=== PATIENT | male | born 1940 | race African-American/Black ===

== ENCOUNTER → 2017-07-20 | Outpatient (CLI) | payer MEDICARE, OTHER | LOC: CAT 10:24 | DX: I25.10 Atherosclerotic heart disease of native coronary artery without angina pectoris (principal); J92.9 Pleural plaque without asbestos ==

== ENCOUNTER → 2017-07-28 | Outpatient (CLI) | payer MEDICARE, OTHER | LOC: ULTRA 11:10 | DX: E04.1 Nontoxic single thyroid nodule (principal) ==

== ENCOUNTER → 2017-08-19 | Outpatient (CLI) | payer MEDICARE, OTHER ==
--- NOTE | ~2017-08-19 | CNG ---
[facility] [place] [address] CYTO-NONGYN REPORT PROCEDURE Name: PAIGE SAINI Room #: REG [facility] Michael#: [id number] Admission: 08/19/17 Date of : 44 Discharge: Report #: [id number] Path Case #: [id number] CYTOPATHOLOGY REPORT COLLECTION DATE: 08/19/2017 RECEIVED DATE: 08/19/2017 SUBMITTING PHYS: Dr. Anthony Alarcon OTHER PHYS: Dr. Karan Pena CLINICAL HISTORY: Right and Left thyroid nodules. See separate report for the left thyroid nodule [id number]. SPECIMEN(S) RECEIVED: A.US guided Fine needle aspiration, Right thyroid nodule 0.97 x 0.77 x 1.4 cm * * * * * * * * * * * * FINAL DIAGNOSIS: A. Thyroid, Right thyroid nodule 0.97 x 0.77 x 1.4 cm, US guided Fine needle aspiration: [place] CATEGORY I. NONDIAGNOSTIC: ELEMENTS OF PERIPHERAL BLOOD ONLY. No thyroid follicular cells present for cytologic evaluation. PATHOLOGIST: Rubia Spencer M.D. REPORT ELECTRONICALLY SIGNED BY: Rubia Spencer M.D. DATE/TIME: 08/20/2017 10:27 * * * * * * * * * * * * GROSS PATHOLOGY: A. US guided Fine needle aspiration, Right thyroid nodule 0.97 x 0.77 x 1.4 cm: The specimen is labeled "Paige Saini " and consists of two fixed slides, two air dried slides. Thirty mL of clear colorless fluid in fixative from the needle rinse is also submitted and one ThinPrep slide and a alcohol fixed cell block were prepared from this material. Also received is the RNARetain vial which will be held for molecular studies if needed. (clt 08.19.2017) INSTRUCTIONAL ASSISTANT(S): DEEP Carter(ASCP) INITIAL CPT CODE(S): A; 79245, 75380 Professional services performed by [facility] at [facility] [address], [place] [address] Technical services performed by [facility] at [address] [place] [address], [address], [place] [address]. [facility] [address] [place] [address] CYTO-NONGYN REPORT PROCEDURE Name: PAIGE SAINI Room #: REG [facility].#: [id number] Admission: 08/19/17 Date of : 44 Discharge: Report #: [id number] Path Case #: [id number] [facility] [address] [place] [address], [address] [place] [address] PHONE: [phone] DIRECTOR: Johnny Rolle M.D. * * * END OF REPORT * * *
--- NOTE | ~2017-08-19 | S ---
[facility] [place] [address] SURGICAL PATH RPT PROCEDURE Name: CHRISTELLEPAIGE Dennis Room #: REG RAJNI CharitoPeteIvan.#: [id number] Admission: 08/19/17 Date of : 44 Discharge: Report #: [id number] Path Case #: [id number] PATHOLOGY REPORT COLLECTION DATE: 08/19/2017 RECEIVED DATE: 08/19/2017 SUBMITTING PHYS: Dr. Anthony Alarcon OTHER PHYS: Dr. Karan Pena SPECIMEN(S) RECEIVED: A.Lt thyroid core * * * * * * * * * * * * FINAL DIAGNOSIS: Thyroid, left thyroid lobe, needle core biopsy: - MICROFOLLICULAR LESION (PLEASE SEE COMMENT). COMMENT: Examination shows tightly packed microfollicles and focal macrofollicles. Nuclear features of papillary thyroid carcinoma are not identified. The differential diagnosis for this lesion includes a microfolllicular adenoma or a microfollicular adenomatoid nodule. 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 Correlate clinically and follow-up as indicated. Co-review: Dr. Judy Coates (IUV:mgr; 08/20/2017) PATHOLOGIST: Rubia Spencer M.D. REPORT ELECTRONICALLY SIGNED BY: Rubia Spencer M.D. DATE/TIME: 08/20/2017 15:05 * * * * * * * * * * * * GROSS PATHOLOGY: Received in formalin labeled "Paige Saini Sr, left thyroid lobe" and consists of 2 delicate turner tissue cores averaging 0.5 cm in length by less than 0.1 cm in diameter. There is entirely submitted as A1. (JANELLE; 08/19/2017) CLINICAL HISTORY: Nodule INITIAL CPT CODE(S): A; 914[address] [facility] [place] [address] SURGICAL PATH RPT PROCEDURE Name: PAIGE SAINI Room #: REG [facility].#: [id number] Admission: 08/19/17 Date of : 44 Discharge: Report #: [id number] Path Case #: [id number] Professional [facility] [address], [place] [address] Technical services performed by [facility] at [address] [place] [address], [facility] [address] [address]. [facility] [address] [place] [address] PHONE: [phone] DIRECTOR: Johnny Rolle M.D. * * * END OF REPORT * * *
== END | disposition home or self-care (01) ==
LOC: ULTRA 08:27 → EDSTATUS 08:45 → ULTRA 09:41
DX: E04.2 Nontoxic multinodular goiter (principal)

== ENCOUNTER → 2019-01-11 | Outpatient (CLI) | payer MEDICARE | LOC: RAD 09:11 | DX: J92.9 Pleural plaque without asbestos (principal); Q79.1 Other congenital malformations of diaphragm ==